=== PATIENT | male | born 1975 | race Caucasian/White ===

== ENCOUNTER 2017-04-17 23:16 | Inpatient (IN) | payer MEDICAID, OTHER ==
[~2017-04-17] VITALS: Ht 172.7 cm; Wt 73.0 kg
[2017-04-18] MEDS ORDERED: SODIUM CHLORIDE 0.9% 1,000 ML IV ONE ×2 (01:13→03:01)
[2017-04-18] MEDS ORDERED: ONDANSETRON HCL 4MG/2ML VIAL IV STA (01:13)
[2017-04-18] MEDS ORDERED: MORPHINE SULFATE 4 MG/ML CPJ (NOT FOR IM USE) IV STA (01:13)
[2017-04-18 01:26] LABS: BASOPHILS % 1.7 % (0.0-2.0); EOSINOPHILS % 1.9 % (0.0-5.0); HEMATOCRIT. 39.8 % (42.0-52.0); HEMOGLOBIN. 13.7 g/dL (14.0-18.0); LYMPHOCYTES % 53.5 % (20.0-50.0); MEAN CORPUSCULAR HEMOGLOBIN 34.6 pg (28.0-32.0); MEAN CORPUSCULAR VOLUME 100.2 fL (80.0-94.0); MEAN PLATELET VOLUME 9.7 fl (7.4-10.4); MONOCYTES % 7.3 % (2.0-8.0); NEUTROPHILS % 35.6 % (40.0-76.0); PLATELET 85 x1000/uL (130-400); RED BLOOD CELL COUNT 3.97 mill/uL (4.7-6.1); RED CELL DISTRIBUTION WIDTH 12.8 % (11.6-14.6)
[2017-04-18 01:32] LABS: CHLORIDE 104 mEq/L (98-107)
[2017-04-18 01:34] LABS: PROTHROMBIN TIME 10.3 sec (9.4-11.6)
[2017-04-18 01:41] LABS: CARBON DIOXIDE 23 mEq/L (21-32)
[2017-04-18 03:17] LABS: CLARITY URINE CLEAR (CLEAR); COLOR URINE YELLOW (YELLOW); GLUCOSE URINE NEGATIVE (NEGATIVE); KETONES URINE NEGATIVE (NEGATIVE); LEUKOCYTE ESTERASE URINE NEGATIVE (NEGATIVE); NITRITE URINE NEGATIVE (NEGATIVE); OCCULT BLOOD URINE NEGATIVE (NEGATIVE); PROTEIN URINE NEGATIVE (NEGATIVE); SPECIFIC GRAVITY URINE 1.009 (1.005-1.030); UROBILINOGEN URINE 0.2 E.U./dL (0.2-1.0)
[2017-04-18 04:30] VITALS: BP 114/63
[2017-04-18] MEDS ORDERED: SODIUM CHLORIDE 0.9% 1,000 ML IV SCH (04:31)
[2017-04-18] MEDS ORDERED: MAGNESIUM/ALUMINUM HYDROXIDE/SIMETHICONE 30ML UDC PO PRN (05:45)
[2017-04-18] MEDS ORDERED: ONDANSETRON HCL 4MG/2ML VIAL IV PRN (05:45)
[2017-04-18] MEDS ORDERED: DIPHENHYDRAMINE 50MG/ML VIAL IV PRN (05:45)
[2017-04-18] MEDS ORDERED: MORPHINE SULFATE 2 MG/ML CPJ (NOT FOR IM USE) IV PRN (06:00)
[2017-04-18] MEDS ORDERED: SODIUM CHLORIDE 0.9% 10ML VIAL ONE (06:00)
[2017-04-18] MEDS ORDERED: IOHEXOL-300 100 ML BOTTLE ONE (06:00)
[2017-04-18] MEDS: SODIUM CHLORIDE 0.9% 1,000 ML IV SCH ×3 (06:27→13:37)
[2017-04-18 08:00] VITALS: BP 105/66
[2017-04-18] MEDS: FAMOTIDINE 20MG/2ML VIAL IV SCH ×2 (09:02→21:46)
[2017-04-18] MEDS ORDERED: PNEUMOCOCCAL 23-VAL P-SAC VAC 0.5 ML IM ONE (10:00)
[2017-04-18] MEDS: ACETAMINOPHEN 325MG TABLET PO PRN ×2 (11:37→18:43)
[2017-04-18 12:00] VITALS: BP 115/70
[2017-04-18] MEDS ORDERED: LORAZEPAM 2MG/ML CPJ IM PRN (13:30)
[2017-04-18] MEDS: CHLORDIAZEPOXIDE 25MG CAPSULE PO SCH ×2 (13:37→21:46)
[2017-04-18] MEDS: FOLIC ACID 1 MG, THIAMINE HCL 100 MG, MVI, ADULT NO.1 10 ML in DEXTROSE 5% WATER 1,000 ML IV SCH ×4 (15:10)
[2017-04-18 16:00] VITALS: BP 113/50
[2017-04-18 20:00] VITALS: BP 126/65
[2017-04-19] VITALS: BP 129/79
[2017-04-19] MEDS: SODIUM CHLORIDE 0.9% 1,000 ML IV SCH ×3 (01:41→08:54)
[2017-04-19 04:00] VITALS: BP 123/80
[2017-04-19] MEDS: CHLORDIAZEPOXIDE 25MG CAPSULE PO SCH (06:16)
[2017-04-19 07:41] LABS: CARBON DIOXIDE 26 mEq/L (21-32); CHLORIDE 99 mEq/L (98-107)
[2017-04-19 08:00] VITALS: BP 113/75
[2017-04-19 08:00] LABS: BASOPHILS % 1.2 % (0.0-2.0); EOSINOPHILS % 1.5 % (0.0-5.0); HEMATOCRIT. 40.6 % (42.0-52.0); HEMOGLOBIN. 13.9 g/dL (14.0-18.0); LYMPHOCYTES % 31.6 % (20.0-50.0); MEAN CORPUSCULAR HEMOGLOBIN 34.7 pg (28.0-32.0); MEAN CORPUSCULAR VOLUME 101.2 fL (80.0-94.0); MEAN PLATELET VOLUME 10.5 fl (7.4-10.4); MONOCYTES % 9.9 % (2.0-8.0); NEUTROPHILS % 55.8 % (40.0-76.0); PLATELET 77 x1000/uL (130-400); RED BLOOD CELL COUNT 4.01 mill/uL (4.7-6.1); RED CELL DISTRIBUTION WIDTH 12.9 % (11.6-14.6)
[2017-04-19] MEDS: FAMOTIDINE 20MG/2ML VIAL IV SCH (08:56)
[2017-04-19] MEDS: FOLIC ACID 1 MG, THIAMINE HCL 100 MG, MVI, ADULT NO.1 10 ML in DEXTROSE 5% WATER 1,000 ML IV SCH ×4 (09:38)
[2017-04-19 12:00] VITALS: BP 119/78
[2017-04-19] MEDS ORDERED: POTASSIUM CHLORIDE 20MEQ TABLET SR PO NR (12:15)
[2017-04-19 13:28] VITALS: BP 119/78
== END 2017-04-19 14:00 | disposition home or self-care (01) | DRG 282 ==
LOC: ER 23:16 → MERGE 04-18 03:03 → 8WST 04-18 03:03 → ENRESERV 04-18 03:29
PROVIDERS: ADMIT Internal Medicine; ATTEND Internal Medicine
DX: K85.20 Alcohol induced acute pancreatitis without necrosis or infection (principal); G93.41 Metabolic encephalopathy; F10.231 Alcohol dependence with withdrawal delirium; F17.200 Nicotine dependence, unspecified, uncomplicated; I10 Essential (primary) hypertension; Z83.3 Family history of diabetes mellitus
CPT/HCPCS: 36415; 74177; 76705; 80048; 80053; 81003; 83690; 83735; 84100; 85025; 85610; 90732; 96361; 96374; 96375; 99285; A4216; J2270; J2405; J3411; J3490; J7030; J7070; Q9967

== ENCOUNTER 2018-06-16 03:40 | Emergency (ER) | payer MEDICAID ==
[~2018-06-16] VITALS: Ht 177.8 cm; Wt 73.0 kg
[2018-06-16] MEDS ORDERED: BACITRACIN ZINC OINT UDPKT TOP ONE (06:45)
[2018-06-16] MEDS ORDERED: IBUPROFEN 600MG TABLET PO ONE (06:45)
[2018-06-16] MEDS ORDERED: TETANUS, DIPHTHERIA, PERTUSSIS VAC/PF 0.5ML (>7YR OLD) IM ONE (06:45)
[2018-06-16] MEDS ORDERED: ACETAMINOPHEN 325MG TABLET PO ONE (06:45)
[2018-06-16 07:27] VITALS: BP 116/73
== END 2018-06-16 07:50 | disposition home or self-care (01) ==
LOC: ER 03:40
DX: S80.211A Abrasion, right knee, initial encounter (principal); F17.200 Nicotine dependence, unspecified, uncomplicated; V03.00XA Pedestrian on foot injured in collision with car, pick-up truck or van in nontraffic accident, initial encounter; Y93.89 Activity, other specified; Y92.89 Other specified places as the place of occurrence of the external cause
CPT/HCPCS: 73562; 90715; 99284

== ENCOUNTER 2018-06-21 21:07 | Emergency (ER) | payer MEDICAID ==
[~2018-06-21] VITALS: Ht 177.8 cm; Wt 72.0 kg
[2018-06-21 23:37] VITALS: BP 128/82
== END 2018-06-21 23:38 | disposition home or self-care (01) ==
LOC: ER 21:07
DX: S80.01XA Contusion of right knee, initial encounter (principal); E11.9 Type 2 diabetes mellitus without complications; E78.00 Pure hypercholesterolemia, unspecified; W01.0XXA Fall on same level from slipping, tripping and stumbling without subsequent striking against object, initial encounter; Y93.89 Activity, other specified; Y92.410 Unspecified street and highway as the place of occurrence of the external cause
CPT/HCPCS: 29505; 73560; 99284

== ENCOUNTER 2019-01-15 23:04 | Inpatient (IN) | payer OTHER, MEDICAID ==
[~2019-01-15] VITALS: Ht 170.2 cm; Wt 78.5 kg
[2019-01-15] MEDS ORDERED: FAMOTIDINE 20MG/2ML VIAL IV ONE (23:30)
[2019-01-15] MEDS ORDERED: OCTREOTIDE ACETATE 50 MCG/ML 1ML IV ONE (23:30)
[2019-01-15] MEDS ORDERED: PANTOPRAZOLE 40MG DR TABLET PO ONE (23:30)
[2019-01-15] MEDS ORDERED: SODIUM CHLORIDE 0.9% 1,000 ML IV ONE (23:30)
[2019-01-15 23:56] LABS: BASOPHILS % 1.6 % (0.0-2.0); HEMATOCRIT. 24.6 % (42.0-52.0); HEMOGLOBIN. 8.2 g/dL (14.0-18.0); LYMPHOCYTES % 42.1 % (20.0-50.0); MEAN CORPUSCULAR HEMOGLOBIN 29.3 pg (28.0-32.0); MEAN CORPUSCULAR VOLUME 87.8 fL (80.0-94.0); MEAN PLATELET VOLUME 8.1 fl (7.4-10.4); MONOCYTES % 10.2 % (2.0-8.0); NEUTROPHILS % 44.1 % (40.0-76.0); PLATELET 88 x1000/uL (130-400); RED CELL DISTRIBUTION WIDTH 17.8 % (11.6-14.6)
[2019-01-16 00:01] LABS: CHLORIDE 106 mEq/L (98-107)
[2019-01-16 00:05] LABS: ETHANOL BLOOD 250 mg/dL
[2019-01-16 03:05] VITALS: BP 109/73
[2019-01-16] MEDS ORDERED: HYDROCODONE/ACETAMINOPHEN 5/325MG TABLET PO PRN (05:15)
[2019-01-16] MEDS ORDERED: HYDRALAZINE 20MG/ML VIAL IV PRN (07:15)
[2019-01-16] MEDS ORDERED: ONDANSETRON HCL 4MG/2ML INJ IV PRN (07:15)
[2019-01-16] MEDS ORDERED: ACETAMINOPHEN 325MG TABLET PO PRN (07:15)
[2019-01-16] MEDS ORDERED: MAGNESIUM/ALUMINUM HYDROXIDE/SIMETHICONE 30ML UDC PO PRN (07:15)
[2019-01-16] MEDS ORDERED: GUAIFENESIN 200MG/10ML SUGAR FREE UDC PO PRN (07:15)
[2019-01-16] MEDS ORDERED: HYDROMORPHONE HCL/PF 2MG/ML CPJ IV PRN (07:15)
[2019-01-16] MEDS ORDERED: DIPHENHYDRAMINE 50MG/ML VIAL IV PRN (07:15)
[2019-01-16] MEDS ORDERED: DOCUSATE SODIUM 100MG CAPSULE PO PRN (07:15)
[2019-01-16] MEDS ORDERED: CLONIDINE 0.1MG TABLET PO PRN (07:15)
[2019-01-16] MEDS ORDERED: IPRATROPIUM/ALBUTEROL 0.5-3(2.5)MG/3ML NEB INH PRN (07:30)
[2019-01-16 08:00] VITALS: BP 114/69
[2019-01-16] MEDS ORDERED: PANTOPRAZOLE SODIUM 40 MG/VIAL IV SCH (09:49)
[2019-01-16 11:29] LABS: BASOPHILS % 1.8 % (0.0-2.0); EOSINOPHILS % 0.5 % (0.0-5.0); HEMATOCRIT. 22.9 % (42.0-52.0); HEMOGLOBIN. 7.6 g/dL (14.0-18.0); LYMPHOCYTES % 19.9 % (20.0-50.0); MEAN CORPUSCULAR HEMOGLOBIN 29.1 pg (28.0-32.0); MEAN CORPUSCULAR VOLUME 87.1 fL (80.0-94.0); NEUTROPHILS % 67.8 % (40.0-76.0); PLATELET 94 x1000/uL (130-400); RED BLOOD CELL COUNT 2.63 mill/uL (4.7-6.1); RED CELL DISTRIBUTION WIDTH 18.2 % (11.6-14.6)
[2019-01-16] MEDS: LORAZEPAM 2MG/ML CPJ IV PRN ×2 (11:46→18:08)
[2019-01-16] MEDS: PANTOPRAZOLE SODIUM 40 MG/VIAL IV SCH ×2 (11:47→20:29)
[2019-01-16 11:54] LABS: CHLORIDE 105 mEq/L (98-107)
[2019-01-16 12:00] VITALS: BP 119/74
[2019-01-16 12:46] LABS: CLARITY URINE CLEAR (CLEAR); COLOR URINE YELLOW (YELLOW); KETONES URINE TRACE (NEGATIVE); LEUKOCYTE ESTERASE URINE NEGATIVE (NEGATIVE); NITRITE URINE NEGATIVE (NEGATIVE); OCCULT BLOOD URINE NEGATIVE (NEGATIVE); PROTEIN URINE NEGATIVE (NEGATIVE); SPECIFIC GRAVITY URINE 1.014 (1.005-1.030); UROBILINOGEN URINE 0.2 E.U./dL (0.2-1.0)
[2019-01-16] MEDS: SODIUM CHLORIDE 0.9% INJ 3ML FLUSH IVF SCH ×2 (14:06→20:29)
[2019-01-16] MEDS: FOLIC ACID 1 MG, THIAMINE HCL 100 MG, MVI, ADULT NO.1 10 ML in DEXTROSE 5% WATER 1,000 ML IV SCH ×4 (14:06)
[2019-01-16 16:00] VITALS: BP 120/78
[2019-01-16] MEDS: DEXTROSE 5% WATER 1,000 ML IV SCH ×2 (18:08→22:52)
[2019-01-16 20:00] VITALS: BP 123/73
[2019-01-16 20:52] LABS: CREATINE KINASE 158 IU/L (39-308)
[2019-01-16 20:53] LABS: CREATINE KINASE MB FRACTION < 1.0 ng/mL (0.5-3.6)
[2019-01-17] VITALS: BP 111/77
[2019-01-17 00:26] LABS: CREATINE KINASE 147 IU/L (39-308)
[2019-01-17 00:27] LABS: CREATINE KINASE MB FRACTION < 1.0 ng/mL (0.5-3.6)
[2019-01-17 04:00] VITALS: BP 113/70
[2019-01-17] MEDS: SODIUM CHLORIDE 0.9% INJ 3ML FLUSH IVF SCH ×2 (05:14→13:57)
[2019-01-17 06:47] LABS: EOSINOPHILS % 1.4 % (0.0-5.0); HEMATOCRIT. 22.1 % (42.0-52.0); HEMOGLOBIN. 7.4 g/dL (14.0-18.0); LYMPHOCYTES % 24.4 % (20.0-50.0); MEAN CORPUSCULAR HEMOGLOBIN 29.3 pg (28.0-32.0); MEAN CORPUSCULAR VOLUME 87.2 fL (80.0-94.0); MEAN PLATELET VOLUME 9.4 fl (7.4-10.4); MONOCYTES % 9.1 % (2.0-8.0); NEUTROPHILS % 64.1 % (40.0-76.0); PLATELET 91 x1000/uL (130-400); RED BLOOD CELL COUNT 2.53 mill/uL (4.7-6.1); RED CELL DISTRIBUTION WIDTH 17.2 % (11.6-14.6)
[2019-01-17 07:33] LABS: CHLORIDE 99 mEq/L (98-107)
[2019-01-17] MEDS: FOLIC ACID 1 MG, THIAMINE HCL 100 MG, MVI, ADULT NO.1 10 ML in DEXTROSE 5% WATER 1,000 ML IV SCH ×4 (08:35)
[2019-01-17] MEDS: PANTOPRAZOLE SODIUM 40 MG/VIAL IV SCH (08:37)
[2019-01-17] MEDS: DEXTROSE 5% WATER 1,000 ML IV SCH (08:39)
[2019-01-17] MEDS ORDERED: MIDAZOLAM HCL 2 MG/2 ML VIAL ONE (11:24)
[2019-01-17] MEDS ORDERED: PROPOFOL 200MG/20ML VIAL IV ONE ×2 (11:24→12:19)
[2019-01-17] MEDS: KCL 20MEQ/100ML PREMIX 100 ML IV SCH ×2 (11:30→13:30)
[2019-01-17] MEDS ORDERED: SIMETHICONE 40 MG/0.6 ML 30ML ONE (12:16)
[2019-01-17] MEDS ORDERED: ACETAMINOPHEN 325MG TABLET PO PRN (13:00)
[2019-01-17] MEDS ORDERED: ONDANSETRON HCL 4MG/2ML INJ IV PRN (13:00)
[2019-01-17] MEDS: LORAZEPAM 2MG/ML CPJ IV PRN (14:48)
== END 2019-01-17 15:50 | disposition left against medical advice (07) | DRG 241 ==
LOC: ER 23:04 → 7WST 01-16 01:29 → ENRESERV 01-16 02:06
PROVIDERS: ADMIT Internal Medicine; ATTEND Internal Medicine
PROC: 0DB68ZX Excision of Stomach, Via Natural or Artificial Opening Endoscopic, Diagnostic (ICD-10-PCS; principal; 2019-01-17)
DX: K29.71 Gastritis, unspecified, with bleeding (principal); I95.9 Hypotension, unspecified; E46 Unspecified protein-calorie malnutrition; K76.0 Fatty (change of) liver, not elsewhere classified; E83.51 Hypocalcemia; D64.9 Anemia, unspecified; I10 Essential (primary) hypertension; D72.819 Decreased white blood cell count, unspecified; K44.9 Diaphragmatic hernia without obstruction or gangrene; F10.20 Alcohol dependence, uncomplicated; Y90.8 Blood alcohol level of 240 mg/100 ml or more; Z53.21 Procedure and treatment not carried out due to patient leaving prior to being seen by health care provider; Z68.27 Body mass index [BMI] 27.0-27.9, adult
CPT/HCPCS: 36415; 80320; 82550; 82553; 84484; 86850; 86900; 86920; 88305; 88312; 88313; 99285; C9113; J2060; J2250; J2354; J2405; J2704; J3411; J3480; J3490; J7030; J7040; J7070; G0480

== ENCOUNTER 2020-03-22 21:05 | Emergency (ER) | payer MEDICAID, OTHER ==
[~2020-03-22] VITALS: Ht 180.3 cm; Wt 67.0 kg
[2020-03-22] MEDS ORDERED: KETOROLAC 30MG/ML VIAL IM ONE (21:30)
[2020-03-22 23:30] VITALS: BP 121/81
== END 2020-03-22 23:30 | disposition home or self-care (01) ==
LOC: ER 21:05
DX: S99.922A Unspecified injury of left foot, initial encounter (principal); F10.20 Alcohol dependence, uncomplicated; I10 Essential (primary) hypertension; W22.8XXA Striking against or struck by other objects, initial encounter; Y93.89 Activity, other specified; Y92.89 Other specified places as the place of occurrence of the external cause; Y99.8 Other external cause status; Y90.9 Presence of alcohol in blood, level not specified
CPT/HCPCS: 29515; 73630; 96372; 99283; J1885; Z7610

== ENCOUNTER 2025-01-26 07:41 | Emergency (ER) | payer MEDICAID ==
[~2025-01-26] VITALS: Ht 172.7 cm; Wt 65.0 kg
[~2025-01-26 07:41] MED LIST: ACET-2708 MT; ALBU18HF2 IH; METH4TAB95 MT; MIDO5TAB4 PO; NAPR220C61 MT; OMEP40CA20 MT; THIA100T72 PO; TOPUD PO
[2025-01-26 07:43] VITALS: O2SAT 100
[2025-01-26 08:07] VITALS: TEMP 36.8
[2025-01-26] MEDS: ONDANSETRON HCL 4MG/2ML INJ IV ONE (08:25)
[2025-01-26 08:26] LABS: BASOPHILS % 0.8 % (0.0-2.0); EOSINOPHILS % 0.7 % (0.0-5.0); HEMATOCRIT. 27.4 % (42.0-52.0); HEMOGLOBIN. 9.1 g/dL (14.0-18.0); LYMPHOCYTES % 16.7 % (20.0-50.0); MEAN CORPUSCULAR HEMOGLOBIN 28.5 pg (28.0-32.0); MEAN CORPUSCULAR HGB CONC 33.1 g/dL (31.0-37.0); MEAN CORPUSCULAR VOLUME 86.1 fL (80.0-94.0); MEAN PLATELET VOLUME 8.4 fl (7.4-10.4); MONOCYTES % 4.6 % (2.0-8.0); NEUTROPHILS % 77.2 % (40.0-76.0); PLATELET 390 x1000/uL (130-400); RED BLOOD CELL COUNT 3.18 mill/uL (4.7-6.1); RED CELL DISTRIBUTION WIDTH 22.2 % (11.6-14.6); WHITE BLOOD COUNT 9.4 x1000/uL (4.5-11.0)
[2025-01-26 08:27] LABS: ADD RBC MORPHOLOGY YES; DIFFERENTIAL COMMENT 1
[2025-01-26] MEDS: MORPHINE SULFATE 4 MG/ML INJ (FOR IV/IM USE) IV ONE (08:39)
[2025-01-26 08:40] LABS: CHLORIDE 99 mEq/L (98-107); POTASSIUM 2.9 mEq/L (3.5-5.1); SODIUM 138 mEq/L (136-145)
[2025-01-26 08:41] LABS: CALCIUM 9.1 mg/dL (8.7-10.4); CARBON DIOXIDE 29 mEq/L (21-32)
[2025-01-26 08:46] LABS: CREATININE 0.7 mg/dL (0.6-1.3); GLUCOSE 105 mg/dL (70-105); UREA NITROGEN BLOOD < 5 mg/dL (9-23)
[2025-01-26 08:48] LABS: ALANINE AMINOTRANSFERASE 14 IU/L (10-49); ALBUMIN 3.8 g/dL (3.2-4.8); ASPARTATE AMINOTRANSFERASE 41 IU/L (<34); BILIRUBIN DIRECT 0.2 mg/dL (<=3.0); BILIRUBIN TOTAL 0.4 mg/dL (0.1-1.0); PROTEIN TOTAL 8.6 g/dL (6.0-8.3)
[2025-01-26 09:35] VITALS: BP 101/62; PULSE 84; RESP 14; O2SAT 100
[2025-01-26 09:42] LABS: ANISOCYTOSIS 3+; PLATELET ESTIMATE NORMAL
== END 2025-01-26 09:47 | disposition left against medical advice (07) ==
LOC: ER 07:41 → MERGE 07:41 → ER 09:47
DX: R04.2 Hemoptysis (principal); R10.84 Generalized abdominal pain; R11.2 Nausea with vomiting, unspecified; E87.6 Hypokalemia; F10.20 Alcohol dependence, uncomplicated; Z79.899 Other long term (current) drug therapy; Z86.11 Personal history of tuberculosis; Y90.9 Presence of alcohol in blood, level not specified
CPT/HCPCS: 80076; 80048; 83690; 85025; 36415; 71045; 93005; 96374; 96375; 99284; J2405; J2270; Z7610 ×2; A4606

== ENCOUNTER 2025-02-28 23:15 | Emergency (ER) | payer SELFPAY ==
[~2025-02-28] VITALS: Ht 182.9 cm; Wt 73.0 kg
[2025-03-01] MEDS: IBUPROFEN 600MG TABLET PO ONE (01:02)
[2025-03-01] MEDS ORDERED: DOXY100C5 MT (02:32)
[2025-03-01] MEDS: DEXAMETHASONE 10 MG/ML VIAL PO ONE (03:49)
[2025-03-01 04:06] VITALS: PULSE 88; RESP 16; O2SAT 97
[2025-03-01] MEDS: IPRATROPIUM/ALBUTEROL 0.5-3(2.5)MG/3ML NEB HHN ONE (04:06)
[2025-03-01 04:30] VITALS: BP 100/67; PULSE 77; RESP 16; TEMP 36.8; O2SAT 100
== END 2025-03-01 04:34 | disposition home or self-care (01) ==
LOC: ER 23:15
DX: J06.9 Acute upper respiratory infection, unspecified (principal); I10 Essential (primary) hypertension; F10.90 Alcohol use, unspecified, uncomplicated; Y90.9 Presence of alcohol in blood, level not specified
CPT/HCPCS: 71045; 99285; 94640; 98960; Z7610 ×3; J1100; 94070

== ENCOUNTER 2025-03-02 18:20 | Emergency (ER) | payer SELFPAY ==
[~2025-03-02] VITALS: Ht 182.9 cm; Wt 73.0 kg
[~2025-03-02 18:20] MED LIST changes: -ACET-2708 MT; -ALBU18HF2 IH; +DOXY100C5 MT; -METH4TAB95 MT; -MIDO5TAB4 PO; -NAPR220C61 MT; -OMEP40CA20 MT; -THIA100T72 PO; -TOPUD PO
[2025-03-02 18:32] VITALS: BP 123/77; TEMP 36.9; O2SAT 100
[2025-03-02 18:35] VITALS: PULSE 129; RESP 22; O2SAT 98
[2025-03-02 19:13] LABS: BASOPHILS % 0.2 % (0.0-2.0); EOSINOPHILS % 0.0 % (0.0-5.0); HEMATOCRIT. 29.8 % (42.0-52.0); HEMOGLOBIN. 9.7 g/dL (14.0-18.0); LYMPHOCYTES % 26.9 % (20.0-50.0); MEAN PLATELET VOLUME 7.5 fl (7.4-10.4); MONOCYTES % 5.9 % (2.0-8.0); NEUTROPHILS % 67.0 % (40.0-76.0); PLATELET 400 x1000/uL (130-400); RED BLOOD CELL COUNT 3.39 mill/uL (4.7-6.1); RED CELL DISTRIBUTION WIDTH 18.0 % (11.6-14.6)
[2025-03-02 19:28] LABS: CREATININE 0.7 mg/dL (0.6-1.3); UREA NITROGEN BLOOD 7 mg/dL (9-23)
[2025-03-02 19:29] LABS: TROPONIN I HIGH SENSITIVITY < 4 ng/L (3.0-53)
== END 2025-03-02 22:12 | disposition left against medical advice (07) ==
LOC: ER 18:20
DX: R06.6 Hiccough (principal); R05.9 Cough, unspecified; R07.9 Chest pain, unspecified; Z53.21 Procedure and treatment not carried out due to patient leaving prior to being seen by health care provider
CPT/HCPCS: 36415; 80048; 84484; 85025; 93005

== ENCOUNTER 2025-03-19 19:12 | Emergency (ER) | payer MEDICAID ==
[~2025-03-19] VITALS: Ht 177.8 cm; Wt 60.7 kg
[~2025-03-19 19:12] MED LIST changes: +ACET-2708 MT; +ALBU18HF2 IH; +METH4TAB95 MT; +MIDO5TAB4 PO; +NAPR220C61 MT; +OMEP40CA20 MT; +THIA100T72 PO; +TOPUD PO
[2025-03-19 19:18] VITALS: O2SAT 98
[2025-03-19 19:48] VITALS: BP 111/77; PULSE 93; RESP 18; TEMP 36.9; O2SAT 100
== END 2025-03-19 23:48 | disposition home or self-care (01) ==
LOC: ER 19:12
DX: S63.501A Unspecified sprain of right wrist, initial encounter (principal); S60.211A Contusion of right wrist, initial encounter; I10 Essential (primary) hypertension; Z79.899 Other long term (current) drug therapy; X58.XXXA Exposure to other specified factors, initial encounter; Y93.89 Activity, other specified; Y92.89 Other specified places as the place of occurrence of the external cause; Y99.8 Other external cause status
CPT/HCPCS: 73030; 73090; 73110; 73120; 99284

== ENCOUNTER 2025-03-25 04:43 | Inpatient (IN) | payer MEDICAID ==
[~2025-03-25] VITALS: Ht 172.7 cm; Wt 60.1 kg
[2025-03-25 05:06] VITALS: O2SAT 100
[2025-03-25] MEDS ORDERED: FAMOTIDINE 20MG/2ML VIAL IV ONE (05:30)
[2025-03-25 05:53] LABS: BASOPHILS % 0.8 % (0.0-2.0); EOSINOPHILS % 0.5 % (0.0-5.0); HEMATOCRIT. 30.8 % (42.0-52.0); HEMOGLOBIN. 9.8 g/dL (14.0-18.0); LYMPHOCYTES % 15.8 % (20.0-50.0); MEAN PLATELET VOLUME 8.2 fl (7.4-10.4); MONOCYTES % 7.6 % (2.0-8.0); NEUTROPHILS % 75.3 % (40.0-76.0); PLATELET 240 x1000/uL (130-400); RED BLOOD CELL COUNT 3.55 mill/uL (4.7-6.1); RED CELL DISTRIBUTION WIDTH 17.5 % (11.6-14.6)
[2025-03-25 06:06] LABS: CREATININE 0.6 mg/dL (0.6-1.3)
[2025-03-25 06:07] LABS: ETHANOL BLOOD 47 mg/dL (<10); TROPONIN I HIGH SENSITIVITY < 4 ng/L (3.0-53); UREA NITROGEN BLOOD 6 mg/dL (9-23)
[2025-03-25 06:08] LABS: ASPARTATE AMINOTRANSFERASE 28 IU/L (<34)
[2025-03-25 06:09] LABS: BILIRUBIN DIRECT 0.3 mg/dL (<=3.0); BILIRUBIN TOTAL 0.7 mg/dL (0.1-1.0); PROTEIN TOTAL 9.6 g/dL (6.0-8.3)
[2025-03-25 06:10] LABS: INR 1.1
[2025-03-25] MEDS: SODIUM CHLORIDE 0.9% 1,000 ML IV ONE (06:12)
[2025-03-25] MEDS: ONDANSETRON HCL 4MG/2ML INJ IV ONE (06:21)
[2025-03-25] MEDS: PANTOPRAZOLE 80 MG in SODIUM CHLORIDE 0.9% 100 ML IV ONE (06:26)
[2025-03-25] MEDS ORDERED: IOHEXOL-300 100 ML BOTTLE ONE (07:20)
[2025-03-25 10:27] VITALS: BP 102/72; PULSE 102; RESP 16; TEMP 37.6; O2SAT 100
[2025-03-25 10:32] VITALS: BP 101/72; PULSE 102; RESP 16; TEMP 37.5856
[2025-03-25] MEDS ORDERED: DOCUSATE SODIUM 100MG CAPSULE PO PRN (11:45)
[2025-03-25] MEDS ORDERED: ONDANSETRON HCL 4MG/2ML INJ IV PRN (11:45)
[2025-03-25] MEDS ORDERED: CLONIDINE 0.1MG TABLET PO PRN (11:45)
[2025-03-25] MEDS ORDERED: IPRATROPIUM/ALBUTEROL 0.5-3(2.5)MG/3ML NEB HHN PRN (11:45)
[2025-03-25] MEDS ORDERED: LORAZEPAM 2MG/ML UD SYRINGE IV PRN (11:45)
[2025-03-25] MEDS ORDERED: ACETAMINOPHEN 325MG TABLET PO PRN (11:45)
[2025-03-25] MEDS: ENOXAPARIN 40MG/0.4ML SYR SUBCUT SCH (12:00)
[2025-03-25 12:08] VITALS: BP 110/78; PULSE 136; RESP 15; TEMP 36.7; O2SAT 98
[2025-03-25] MEDS: POTASSIUM CHLORIDE 20MEQ TABLET SR PO NR (12:34)
[2025-03-25] MEDS: CHLORDIAZEPOXIDE 25MG CAPSULE PO SCH (14:48)
[2025-03-25] MEDS: PANTOPRAZOLE SODIUM 40 MG/VIAL IV SCH (14:49)
[2025-03-25] MEDS: FOLIC ACID 1 MG, THIAMINE HCL 100 MG, MVI, ADULT NO.1 10 ML in DEXTROSE 5% WATER 1,000 ML IV SCH (14:50)
[2025-03-25 16:00] VITALS: BP 99/61; PULSE 85; RESP 17; TEMP 37.3; O2SAT 100
[2025-03-25] MEDS: ACETAMINOPHEN 325MG TABLET PO PRN (17:15)
[2025-03-25 20:00] VITALS: BP 99/60; PULSE 94; RESP 18; TEMP 36.6; O2SAT 98
[2025-03-26] VITALS: BP 104/60; PULSE 89; RESP 18; TEMP 37; O2SAT 100
[2025-03-26 04:00] VITALS: BP 104/60; PULSE 89; RESP 18; TEMP 37; O2SAT 100
[2025-03-26 07:37] LABS: BASOPHILS % 0.7 % (0.0-2.0); EOSINOPHILS % 0.8 % (0.0-5.0); HEMATOCRIT. 26.8 % (42.0-52.0); HEMOGLOBIN. 8.5 g/dL (14.0-18.0); LYMPHOCYTES % 20.9 % (20.0-50.0); MEAN PLATELET VOLUME 9.0 fl (7.4-10.4); MONOCYTES % 10.0 % (2.0-8.0); NEUTROPHILS % 67.6 % (40.0-76.0); PLATELET 186 x1000/uL (130-400); RED BLOOD CELL COUNT 3.06 mill/uL (4.7-6.1); RED CELL DISTRIBUTION WIDTH 18.0 % (11.6-14.6)
[2025-03-26 07:48] LABS: INR 1.1
[2025-03-26 07:54] LABS: CREATININE 0.5 mg/dL (0.6-1.3); UREA NITROGEN BLOOD 6 mg/dL (9-23)
[2025-03-26 07:56] LABS: ASPARTATE AMINOTRANSFERASE 18 IU/L (<34); BILIRUBIN DIRECT 0.3 mg/dL (<=3.0); BILIRUBIN TOTAL 0.8 mg/dL (0.1-1.0); PHOSPHORUS 1.7 mg/dL (2.5-4.9); PROTEIN TOTAL 7.4 g/dL (6.0-8.3)
[2025-03-26 07:59] LABS: VITAMIN B12 SERUM 599 pg/mL (211-911)
[2025-03-26 08:00] VITALS: BP 96/65; PULSE 90; RESP 18; TEMP 36.9; O2SAT 100
[2025-03-26 08:00] LABS: FOLIC ACID (FOLATE) SERUM 11.42 ng/mL (>5.38)
[2025-03-26] MEDS ORDERED: MULTIVITAMINS,THER W-MINERALS TABLET PO SCH (09:00)
[2025-03-26] MEDS ORDERED: FOLIC ACID 1MG TABLET PO SCH (09:00)
[2025-03-26] MEDS ORDERED: THIAMINE HCL 100MG TABLET PO SCH (09:00)
== END 2025-03-26 09:55 | disposition left against medical advice (07) | DRG 253 ==
LOC: ER 05:20 → 6WST 07:50 → EDBEDREQTM 07:53 → EDBEDREQ 07:53 → ENRESERV 08:27
PROVIDERS: ADMIT Internal Medicine; ATTEND Internal Medicine
DX: K92.0 Hematemesis (principal); K76.0 Fatty (change of) liver, not elsewhere classified; D64.9 Anemia, unspecified; Y90.9 Presence of alcohol in blood, level not specified; F10.229 Alcohol dependence with intoxication, unspecified; E87.6 Hypokalemia; I10 Essential (primary) hypertension; F10.239 Alcohol dependence with withdrawal, unspecified; Z53.29 Procedure and treatment not carried out because of patient's decision for other reasons
CPT/HCPCS: 36415; 74177; 80048; 80076; 80320; 82550; 82607; 82728; 82746; 83540; 83550; 83735; 83880; 84100; 84484; 85025; 86850; 86900; 99291; A4606; J1650; J2405; J2470; J3411; J3490; J7030; J7050; J7070; Q9967; G0480